=== PATIENT | male | born 1955 | race Caucasian/White ===

== ENCOUNTER → 2019-05-26 | Outpatient (CLI) | payer BC, MEDICARE ==
[2019-05-26 07:42] LABS: HGB 16.3 gm/dL (13.0-17.5); MCH 27.5 pg (25.0-35.0); MCV 85.8 fL (80.0-100.0); Mean Platelet Volume 7.1; Platelet Count 263 k/uL (150-450); RBC 5.94 m/uL (4.30-5.90); RDW 13.8 % (11.5-15.5); WBC 10.9 k/uL (3.8-10.6)
[2019-05-26 07:53] LABS: African American GFR (CKD) >90 (>60 ml/min/1.73 sqM); Anion Gap 10 mmol/L; Blood Urea Nitrogen 21 mg/dL (9-20); Carbon Dioxide 25 mmol/L (22-30); Chloride 103 mmol/L (98-107); Non-African American GFR(CKD) >90 (>60 ml/min/1.73 sqM); Potassium 4.6 mmol/L (3.5-5.1); Sodium 138 mmol/L (137-145)
== END ==
LOC: LABPAT 06:31
PROVIDERS: ATTEND Internal Medicine Interventional Cardiology
DX: Z01.812 Encounter for preprocedural laboratory examination (principal); I20.9 Angina pectoris, unspecified
CPT/HCPCS: 80051; 82565; 84520; 85027

== ENCOUNTER → 2019-06-07 | Day surgery (SDC) | payer MEDICARE, BC ==
[2019-06-02 13:18] VITALS: BMI 33.9
[~2019-06-07] MED LIST: ALPRAZolam 0.25 MG TAB PO PRN; ALPRAZolam 0.5 MG TAB PO PRN; ASPIRIN 325 MG TAB PO STA; ASPIRIN 81 MG PO SCH; ATORVASTATIN 10 MG TAB PO SCH; ATORVASTATIN 80 MG TAB PO STA; Ertugliflozin Pidolate [Steglatro] PO SCH; HEPARIN SODIUM 1,000 UN/ML (10ML VL) IV ONE; HYDROCHLOROTHIAZIDE 25 MG TAB PO SCH; IOPAMIDOL-300 50ML BTL INJ ONE; IOPAMIDOL-370 100ML BTL INJ ONE; LIDOCAINE 1% INJ 10MG/ML (20 ML MDV) ONE; LIDOCAINE 1% INJ 10MG/ML (20 ML MDV) SQ ONE; LOSARTAN 50 MG TAB PO SCH; METOPROLOL TARTRATE 25 MG TAB PO SCH; MIDAZOLAM 2 MG/2 ML VIAL IV ONE; NITROGLYCERIN SL TABS 0.4 MG TAB SUBLINGUAL PRN; NON FORMULARY DRUG (Omega-3 Fatty Acids/Fish Oil [Fish Oil 1,000 Mg Softgel] 1 CAP) PO SCH; PIOGLITAZONE 30 MG TAB PO SCH; SODIUM CHLORIDE 0.9% 1,000 ML IV SCH; SODIUM CHLORIDE 0.9% 1,000 ML in EMPTY BAG 1 BAG IV ONE; VERAPAMIL 2.5 MG/ML 2 ML AMP ONE; VERAPAMIL SYRINGE (5 MG/10 ML) INTRAARTER ONE; amLODIPine 10 MG TAB PO SCH
[2019-06-07 07:03] VITALS: RESP 18; TEMP 98.7
[2019-06-07 07:10] LABS: Glucose,Whole Blood 157 mg/dL (75-99)
--- NOTE | 2019-06-07 09:33 | CC ---
CARDIAC CATHETERIZATION REPORT DATE OF PROCEDURE: 06/07/2019. PROCEDURE: Left heart catheterization and coronary angiography and left ventriculography. PERFORMED BY: Dr. Parker Gaxiola. Moderate conscious sedation time was 64 minutes. Patient was administered Versed. His oxygen saturation, hemodynamics and EKG were monitored closely. CLINICAL INFORMATION: Mr. 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 PROCEDURE NOTE: Under local anesthesia and strict aseptic precautions, a 6-Beninese introducer was placed in the right radial artery. I advanced the right catheter up to the innominate artery, but I could not get into the ascending aorta. There was a bovine arch and the wire kept going towards the descending aorta. After some attempts, I took the wire out and started from the right femoral approach. I had great difficulty in getting axis mainly because there was a heavy chunk of calcium and each time I gained access and had a good blood return, I was unable to advance the guidewire because it kept pushing against the calcium within the vessel wall. This happened multiple times. There was a small hematoma. I therefore applied some manual pressure. I tried both micropuncture initially and normal regular needle subsequently. There was a small hematoma. Manual compression was applied. I then went over from the left groin and with a regular needle and a regular wire, I was able to gain access. A 6-Beninese introducer was placed. Standard Skinny catheters were used to perform coronary angiography and a pigtail catheter was used to perform an LV gram. The sheath was taken out and Angio- Seal device used to secure hemostasis at the end of the procedure. For the right groin, I applied a FemoStop. A TR band was applied to the right radial site and the TR band secured hemostasis very well and saturation was 95%. The patient tolerated the procedure well overall and it took considerably longer time. There was a small right groin hematoma and FemoStop was applied. CARDIAC CATHETERIZATION FINDINGS: Left ventricular end-diastolic pressure was about 14 to 15 mmHg without any gradient across aortic valve. CORONARY ANGIOGRAPHY FINDINGS: RIGHT CORONARY ARTERY: Technically this is a large dominant vessel which has mild calcification and distally it bifurcates into a large PDA and PLV, both of which supply a sizable amount of myocardium. There is no significant disease and there are only minor irregularities in the dominant RCA. Right coronary artery provides collaterals to the distal and mid LAD, by way of some collaterals that are are evident on RCA injection. LEFT MAIN CORONARY ARTERY: This is a long patent disease-free vessel that bifurcates into LAD and circumflex. LEFT ANTERIOR DESCENDING CORONARY ARTERY: This vessel is totally occluded in the midportion after septal and diagonal branch. This total occlusion seems to be very chronic. There is slow filling by ipsilateral collaterals noted and there are some bridging collaterals as well. LEFT POSTERIOR CIRCUMFLEX CORONARY ARTERY: Technically a nondominant vessel that is somewhat ectatic in the midportion gives off an obtuse marginal branch laterally and continuation of circumflex in the AV groove is a small branch. No significant disease in the nondominant circumflex that is somewhat ectatic in the midportion. LEFT VENTRICULOGRAM: This was performed in 30-degree JUAN projection, revealed a left ventricle which is of a normal size with good systolic function without wall motion abnormality. Ejection fraction is at least 55% without mitral regurgitation. FINAL IMPRESSION: This patient has slightly elevated filling pressures, no gradient across aortic valve and ejection fraction of 55% without wall motion abnormality and no mitral regurgitation. The patient has a total occlusion of the mid LAD with collaterals from the RCA. Nondominant circumflex, diagonal branch of LAD as well as the dominant RCA are free of significant disease. RECOMMENDATION: For now I am recommending that we will pursue medical therapy. Elective chronic total occlusion PCI of mid LAD will be performed. I discussed the findings in detail with the patient and family members, specifically his . I expect he will be discharged later on today if he is stable. We will see him in the office within the next one week. The findings on the cardiac cath and the general plan outlined in the details and difficulty with the right groin access was explained to the patient and . Postprocedure, patient is doing remarkably well without any symptoms. I expect he will be discharged at about 5 or 6 p.m. today. MMODL / IJN: [id number] /
[2019-06-07 17:08] VITALS: BP 133/76; PULSE 82
== END ==
LOC: CATHCVL 06:06
PROVIDERS: ATTEND Internal Medicine Interventional Cardiology
DX: I25.110 Atherosclerotic heart disease of native coronary artery with unstable angina pectoris (principal); I25.84 Coronary atherosclerosis due to calcified coronary lesion; I25.82 Chronic total occlusion of coronary artery; I10 Essential (primary) hypertension; Z87.891 Personal history of nicotine dependence; E78.5 Hyperlipidemia, unspecified; E78.00 Pure hypercholesterolemia, unspecified; E11.9 Type 2 diabetes mellitus without complications; E66.9 Obesity, unspecified; Z68.33 Body mass index [BMI] 33.0-33.9, adult; Z79.84 Long term (current) use of oral hypoglycemic drugs; Z79.82 Long term (current) use of aspirin; Z79.899 Other long term (current) drug therapy
CPT/HCPCS: 93458; C1769 ×5; C1760; C1894 ×2; J2250; J2001; J1644; Q9967 ×2

== ENCOUNTER → 2023-02-25 | Outpatient (CLI) | payer MEDICARE, BC ==
[2023-02-25 09:01] LABS: Partial Thromboplastin Time 24.5 sec (22.0-30.0); Prothrombin Time 10.9 sec (10.0-12.5)
[2023-02-25 11:06] LABS: HCT 54.8 % (39.6-50.0); HGB 17.9 d/dL (13.0-17.0); MCH 28.4 pg (27.0-32.0); MCHC 32.7 d/dL (32.0-37.0); MCV 86.8 FL (80.0-97.0); Mean Platelet Volume 9.3 FL (9.5-12.2); NRBC Per 100 WBC 0 X 10*3/uL (0.00-0.01); Platelet Count 208 X 10*3/uL (140-440); RBC 6.31 X 10*6/uL (4.40-5.60); RDW 13.5 % (11.5-14.5)
[2023-02-25 11:19] LABS: ALT 29 U/L (10-49); AST 23 U/L (14-35); Albumin 4.5 d/dL (3.8-4.9); Albumin/Globulin Ratio 1.88 Ratio (1.60-3.17); Alkaline Phosphatase 60 U/L (41-126); Blood Urea Nitrogen 20.7 mg/dL (9.0-27.0); Calcium 10.3 mg/dL (8.7-10.3); Carbon Dioxide 24.2 mmol/L (21.6-31.8); Chloride 100 mmol/L (96-109); Globulin 2.4 d/dL (1.6-3.3); Glucose 181 mg/dL (70-110); Potassium 4.9 mmol/L (3.5-5.5); Sodium 138 mmol/L (135-145); Total Bilirubin 0.5 mg/dL (0.3-1.2); Total Protein 6.9 d/dL (6.2-8.2)
[2023-02-25 12:29] LABS: Appearance,Urine Clear (Clear); Bilirubin,Urine Negative (Negative); Blood,Urine Negative (Negative); Color,Urine Yellow (Yellow); Ketones,Urine Trace (Negative); Nitrite,Urine Negative (Negative); Specific Gravity,Urine >1.035 (1.001-1.030); Urobilinogen,Urine 0.2
== END | disposition home or self-care (01) ==
LOC: LABPAT 07:40
PROVIDERS: ATTEND Orthopaedic Surgery
DX: Z01.818 Encounter for other preprocedural examination (principal); I49.1 Atrial premature depolarization; M16.11 Unilateral primary osteoarthritis, right hip; R94.31 Abnormal electrocardiogram [ECG] [EKG]
CPT/HCPCS: 36415; 80053; 81003; 83036; 85027; 85610; 85730; 86850; 86900; 86901; 87070; 93005

== ENCOUNTER → 2023-02-25 | Outpatient (CLI) | payer MEDICARE | END | disposition home or self-care (01) | LOC: LABWHC1 07:44 | PROVIDERS: ATTEND Family Medicine | DX: Z53.9 Procedure and treatment not carried out, unspecified reason (principal) ==

== ENCOUNTER 2023-03-09 09:08 | Day surgery (SDC) | payer BC, MEDICARE ==
[2023-03-02 14:48] VITALS: BMI 33.7
[~2023-03-09 09:08] MED LIST changes: +ACETAMINOPHEN TAB 500 MG TAB PO PRN; -ALPRAZolam 0.25 MG TAB PO PRN; -ALPRAZolam 0.5 MG TAB PO PRN; -ASPIRIN 325 MG TAB PO STA; -ASPIRIN 81 MG PO SCH; -ATORVASTATIN 10 MG TAB PO SCH; -ATORVASTATIN 80 MG TAB PO STA; +DEXAMETHASONE SOD PHOSPHATE 4 MG/ML 1 ML VIAL IV ONE; -Ertugliflozin Pidolate [Steglatro] PO SCH; +GABAPENTIN 300 MG CAP PO PRN; -HEPARIN SODIUM 1,000 UN/ML (10ML VL) IV ONE; -HYDROCHLOROTHIAZIDE 25 MG TAB PO SCH; +HYDROmorphone 0.5 MG/0.5 ML SYRINGE IVP PRN; -IOPAMIDOL-300 50ML BTL INJ ONE; -IOPAMIDOL-370 100ML BTL INJ ONE; +LIDOCAINE 1% (10MG/ML) FOR IV START INTRADERMA PRN; -LIDOCAINE 1% INJ 10MG/ML (20 ML MDV) ONE; -LIDOCAINE 1% INJ 10MG/ML (20 ML MDV) SQ ONE; -LOSARTAN 50 MG TAB PO SCH; +MELOXICAM 7.5 MG TAB PO PRN; -METOPROLOL TARTRATE 25 MG TAB PO SCH; -MIDAZOLAM 2 MG/2 ML VIAL IV ONE; +MIDAZOLAM 2 MG/2 ML VIAL IV PRN; -NITROGLYCERIN SL TABS 0.4 MG TAB SUBLINGUAL PRN; -NON FORMULARY DRUG (Omega-3 Fatty Acids/Fish Oil [Fish Oil 1,000 Mg Softgel] 1 CAP) PO SCH; +ONDANSETRON 4 MG/2 ML VIAL IVP ONE; -PIOGLITAZONE 30 MG TAB PO SCH; -SODIUM CHLORIDE 0.9% 1,000 ML IV SCH; -SODIUM CHLORIDE 0.9% 1,000 ML in EMPTY BAG 1 BAG IV ONE; +TRANEXAMIC 1,000 MG/100ML-NACL 1,000 MG in SALINE 1 100ML.BAG IVPB PRN; -VERAPAMIL 2.5 MG/ML 2 ML AMP ONE; -VERAPAMIL SYRINGE (5 MG/10 ML) INTRAARTER ONE; -amLODIPine 10 MG TAB PO SCH
[2023-03-09 10:37] LABS: Glucose,Whole Blood 150 mg/dL (70-110)
[2023-03-09] MEDS ORDERED: fentaNYL (PF) 50 MCG/ML 2 ML AMP IVP ONE (10:41)
[2023-03-09] MEDS: LACTATED RINGERS 1,000 ML IV SCH ×2 (10:57→14:24)
--- NOTE | 2023-03-09 11:10 | P.ANPRN ---
Procedure Note - Anesthesia - Nerve Block Performed Right Александр Single Time Out Performed: Yes Date of Procedure: 03/09/23 Procedure Start Time: 10:40 Procedure Stop Time: 10:48 Location of Patient: PreOp Indication: Acute Post-Operative Pain, Requested by Surgeon Sedation Type: Sedate with meaningful contact maintained Preparation: Sterile Prep Position: Supine Needle Types: Pajunk Needle Gauge: 21 Ultrasound used to visualize needle placement: Yes Ultrasound used to observe medication spread: Yes Injectate: 0.5% Ropivacaine (see comment for volume) (15 ml + 10 ml NS + 4 mg dexamethasone) Blood Aspirated: No Pain Paresthesia on Injection Noted: No Resistance on Injection: Normal Image Stored and Saved: Yes Events: Uneventful and Well Tolerated
[2023-03-09] MEDS ORDERED: ROPIVACAINE 5 MG/ML 30 ML VIAL ONE (11:25)
[2023-03-09] MEDS ORDERED: TRANEXAMIC 1,000 MG/100ML-NACL PREMIX BAG ONE (11:25)
[2023-03-09] MEDS ORDERED: SUCCINYLCHOLINE CHLORIDE 200 MG/10 ML VIAL IV ONE (11:25)
[2023-03-09] MEDS ORDERED: HYDROmorphone (PF) 1 MG/ML ONE (11:25)
[2023-03-09] MEDS ORDERED: fentaNYL (PF) 50 MCG/ML 2 ML AMP ONE (11:25)
[2023-03-09] MEDS ORDERED: PROPOFOL 10 MG/ML 20 ML VIAL IV ONE (11:25)
[2023-03-09] MEDS ORDERED: SODIUM CHLORIDE 0.9% (PF) 10 ML VIAL ONE (11:25)
[2023-03-09] MEDS ORDERED: DEXAMETHASONE SOD PHOSPHATE 4 MG/ML 1 ML VIAL ONE (11:25)
[2023-03-09] MEDS ORDERED: LIDOCAINE 1% INJ 10MG/ML (20 ML MDV) ONE (11:25)
[2023-03-09] MEDS ORDERED: ceFAZolin 1,000 MG in SODIUM CHLORIDE 0.9% 1,000 ML IRRIGATION ONE (11:30)
[2023-03-09] MEDS ORDERED: ROPIVACAINE 5 MG/ML 30 ML VIAL MISCELLANE ONE ×2 (11:57→12:39)
[2023-03-09] MEDS ORDERED: LACTATED RINGERS 1,000 ML IV ONE (12:39)
--- NOTE | 2023-03-09 12:46 | P.OP ---
Date of Procedure: 03/09/23 Preoperative Diagnosis: Severe osteoarthritis right hip Postoperative Diagnosis: Severe osteoarthritis right hip Procedure(s) Performed: Right total hip arthroplasty with a direct anterior approach Implants: [employer] Polarstem standard size 2 with a collar [employer] R3, 3 hole hemispherical acetabular shell, 52 mm [employer] Reflection 6.5 mm cancellus screw, 20 mm 2 [employer] R3, XLPE 20 acetabular liner [employer]hew Oxinium femoral head 36 m, +4 All components were press-fit. The articulation is Oxinium on polyethylene. Anesthesia: GETA Surgeon: Luis Enrique June Medicine Tech #1: Diya Gastelum Estimated Blood Loss (ml): 350 Pathology: none sent Condition: stable Disposition: PACU Indications for Procedure: After failure of conservative treatment we discussed the surgical and nonsurgi beba treatment options at length. Patient wishes to proceed with a total hip arthroplasty with a direct anterior approach. Complications specific to this procedure were discussed at length, including but not limited to infection, leg length discrepancy, dislocation, nerve injury, and fracture. Covid-19 was also discussed at length with the patient, and they are aware of the current policies and procedures. The patient was given the option of delaying surgery, but they elect to proceed knowing these risks. Patient is aware of all these complications and informed consent was obtained Operative Findings: The operative findings are consistent with severe osteoarthritis of the right hip Description of Procedure: The patient was seen and evaluated in the preoperative area and the consent was reviewed. The operative site was marked with a skin marker. The patient verified the procedure and operative site. A KAREN block was placed by anesthesia in the preoperative area. The patient was then brought to the operating room and given preoperative antibiotics intravenously. 1 g of Tranexamic acid was also given intravenously. A general anesthetic was administered by the anesthesia department. The patient was then placed on the [place] table with the bony prominences well-padded. The hip area was then prepped with a ChloraPrep solution and draped in the usual sterile fashion. A universal timeout was then performed, which confirmed the patient's name, surgical site, ALLERGIES, and procedure being performed on the consent. Next the incision site was located at 1 cm distal and 4 cm lateral to the anterior superior iliac spine. The skin and subcutaneous tissues were sharply incised. Incision was carefully dissected down to the fascia overlying the tensor fascia yanira muscle. This fascia was then incised in line with the muscle fibers. Care was taken to stay laterally in order to avoid injuring the lateral femoral cutaneous nerve. Next, using blunt finger dissection, the tensor fascia yanira muscle was dissected off its investing fascia. The muscle was then carefully retracted laterally with a cobra retractor over the lateral neck of the femur. Next, the circumflex vessels were identified and cauterized using the Aquamantis device. The anterior hip capsule was then exposed. The capsule was then opened and an inverted T fashion. The retractors were then placed intracapsularly. The retractors were maintained intracapsular throughout the procedure. The proximal femur was then visualized. Fluoroscopic x-rays were then taken in order to evaluate the preoperative leg lengths. A small amount of traction was placed on the leg. The femoral neck was then osteotomized at the appropriate level above the lesser trochanter. A small wedge of bone was then removed from the remaining femoral head. Next, using a corkscrew the femoral head was removed from the acetabulum. On gross visual inspection, the femoral head had complete loss of articular cartilage and multiple periarticular osteophytes. The femoral head was then measured. Attention was then turned to the acetabulum. The acetabulum was exposed and any remaining labrum was excised. Sequential reaming of the acetabulum was performed using fluoroscopic guidance until there was a good bed of bleeding cancellus bone. When the appropriate size was reached, a trial was then placed. The position and fit of the trial was checked with fluoroscopy. The trial was then removed. Then, using fluoroscopic guidance, the final implant was impacted at 20 of anteversion and 40 of abduction, and fully seated in the acetabulum. 2 screws were then placed in the acetabulum. Again fluoroscopy was used to check position of the screws. Next, the liner was then impacted, with a 20 elevated liner located in the anterior superior quadrant. Component locking was confirmed. Attention was then directed to the femur. With the aid of the [place] table, the femur was externally rotated to approximately 130, extended, and adducted under the opposite leg. A side hook was then placed under the proximal femur, and the side hook elevator was used to elevate the proximal femur while releasing the capsule. Retractors were then placed. A capsular release was performed, as well as a release of the conjoined tendon, which afforded excellent vis ualization of the proximal femur. Next, a box osteotome was used to lateralize the proximal femur. A stonecutter apprentice hand was then used to locate the femoral canal. Sequential broaching was then performed with appropriate size which afforded excellent fixation in the proximal femur. A trial was then placed with appropriate head and neck, and the hip was gently reduced with the aid of the [place] table. Fluoroscopy was then used to check position of the components, as well as to evaluate the leg lengths and offset. The leg lengths and offset were measured as closely as possible to ensure stability of the hip. The hip was then gently dislocated and the trials were then removed. Final implants were then impacted and the hip was again reduced. Final fluoroscopic x-rays confirmed that the components were in anatomic position. The leg lengths and offset were measured and were found to coincide with the trial measurements. The hip was also taken through range of motion, and found to be stable. The hip was then copiously irrigated with antibiotic solution with pulsatile lavage. The hip was then irrigated with Irrisept solution. The soft tissues were then injected with a ropivacaine solution. A second dose of 1 g of Tranexamic acid was also given intravenously. The fascia was then closed with 2-0 strata fix suture. The subcutaneous tissue was closed with 3-0 Vicryl. The subcuticular tissue was closed with 3-0 strata fix suture. The skin was then closed with Exofin skin glue. After the glue and dried, and Optifoam silver impregnated dressing was applied. The patient was then transferred to the recovery room in stable condition. The access services assistant KRISTIN Muro was required due to the complexity of surgery, and the need for skilled surgical garment assembler for positioning, draping, exposure, retraction, and closure of the wound.
[2023-03-09] MEDS ORDERED: ONDANSETRON 4 MG/2 ML VIAL IVP PRN (13:03)
[2023-03-09] MEDS ORDERED: NALOXONE 0.4 MG/ML 1 ML VIAL IV PRN (13:03)
[2023-03-09] MEDS ORDERED: MAGNESIUM HYDROXIDE 2,400 MG/30 ML CUP PO PRN (13:03)
[2023-03-09] MEDS ORDERED: HYDROmorphone 0.5 MG/0.5 ML SYRINGE IVP PRN ×3 (13:03)
[2023-03-09] MEDS ORDERED: HYDROcodone/APAP 7.5-325MG 1 EACH TAB PO PRN (13:06)
--- NOTE | 2023-03-09 13:35 | XR ---
EXAMINATION TYPE: XR Hip Limited RT DATE OF EXAM: 03/09/2023 CLINICAL HISTORY: Postoperative evaluation TECHNIQUE: Single portable view of the right hip was submitted. FINDINGS: Noted are changes of total hip arthroplasty with femoral and acetabular components appearin g well seated. Alignment is anatomic. Postsurgical soft tissue changes are evident. IMPRESSION: Satisfactory postoperative alignment
--- NOTE | 2023-03-09 13:46 | XR ---
EXAMINATION TYPE: XR Hip Limited RT DATE OF EXAM: 03/09/2023 COMPARISON: NONE HISTORY: Postop TECHNIQUE: 5 view submitted. FINDINGS: There is postsurgical change compatible hip replacement surgery. IMPRESSION: 1. Postoperative change.
--- NOTE | 2023-03-09 13:46 | FL ---
EXAMINATION TYPE: FL guidance operating room DATE OF EXAM: 03/09/2023 HISTORY: Fluoroscopy time Total dose area product (DAP) in uGy*m?, mGy*cm? (or similar): 5.3702 IMPRESSION: 1. Fluoroscopy time.
[2023-03-09] MEDS: SODIUM CHLORIDE 0.9% 1,000 ML IV SCH (15:16)
[2023-03-09] MEDS ORDERED: DEXTROSE 50% SYRINGE 50 ML IVP PRN ×2 (16:20)
[2023-03-09 16:41] LABS: Glucose,Whole Blood 164 mg/dL (70-110)
--- NOTE | 2023-03-09 16:44 | P.CONS ---
History of Present Illness - Reason for Consult Consult date: 03/09/23 - History of Present Illness 67 year old M with PMH of hypertension, CAD, A-Fib, DM and dyslipidemia presents to [facility] for elective surgery. She underwent right total hip arthroplasty with a direct anterior approach with Dr. June. [facility] has been consulted for medical management of this patient. Patient currently reports well controlled right hip pain. Has been able to urinate since surgery, no bowel movement, not passing gas. He has no other complaints. Pertinent positives and negatives as discussed in HPI, a complete review of systems was performed and all other systems are negative. General: non toxic, no distress, appears at stated age Derm: warm, dry Head: atraumatic, normocephalic, symmetric Eyes: EOMI, no lid lag, anicteric sclera Mouth: no lip lesion, mucus membranes moist Cardiovascular: Irregularly irregular, no murmur Lungs: CTA bilateral, no rhonchi, no rales , no accessory muscle use Abdominal: soft, nontender to palpation, no guarding, no appreciable org anomegaly, + BS, no strauss catheter Ext: no gross muscle atrophy, no edema, no contractures Neuro: no focal neuro deficits Psych: Alert, oriented, appropriate affect CAD A-Fib DM Hypertension Dyslipidemia Right total hip arthroplasty POD 0 Based on my assessment of this patient, this patient meets a moderate complexity level of care. Patient has a chronic diagnosis of hypertension, CAD, A-Fib, DM and dyslipidemia. CAD: ASA 81 mg PO QD. Metoprolol 50 mg PO QD. Lipitor 80 mg PO QD. A-Fib: Metoprolol as above. Xarelto ordered by Ortho starting tomorrow. DM: ISS. Accuchecks ACHS. Hypoglycemic precautions. Hypertension: Amlodipine 10 mg PO QD. Losartan 150 mg PO QD. Dyslipidemia: Lipitor as above. CODE STATUS: FULL CODE DVT Prophylaxis: Xarelto. Designated medical POA if patient is not able to make medical decisions for themselves: I have reviewed the following mental hygiene consultant notes: Surgical note. Anesthesia note. I have reviewed the results of the following tests: POC glucose. I have ordered the following tests: Agree with CBC. I have discussed the care of this patient with the following independent historian: I have independently interpreted the following test below: I have discussed the management of this patient with the following physician: Past Medical History Past Medical History: Atrial Fibrillation, Diabetes Mellitus, Hyperlipidemia, Hypertension, Osteoarthritis (OA) Additional Past Medical History / Comment(s): 11/06/14 Pt admitted to floor s/p total L knee arthroplasty. Other HX: NIDDM, History of Any Multi-Drug Resistant Organisms: None Reported Past Surgical History: Tonsillectomy Additional Past Surgical History / Comment(s): Total left knee arthroplasty, left knee lubricant injections, COLONOSCOPY, SINUS surgery, bilateral cataract surgery. Past Anesthesia/Blood Transfusion Reactions: No Reported Reaction Past Psychological History: No Psychological Hx Reported Additional Psychological History / Comment(s): Pt resides with his . He is independent. He currently uses no assistive devices. He drives a car. He has no home care agency use. Smoking Status: Former smoker Past Alcohol Use History: None Reported Additional Past Alcohol Use History / Comment(s): Started smoking in 1971 and quit in 1993. Past Drug Use History: None Reported - Past Family History Father Family Medical History: Cancer Medications and Allergies Home Medications Medication Instructions Recorded Confirmed Type Aspirin [Adult Low Dose Aspirin EC] 81 mg PO DAILY 06/02/19 03/09/23 History Acetaminophen [Tylenol] 325 - 650 mg PO Q4-6H PRN 03/02/23 03/09/23 History Empagliflozin [Jardiance] 25 mg PO DAILY 03/02/23 03/09/23 History Fish Oil/Dha/Epa [Fish Oil 1,200 1 each PO BID 03/02/23 03/09/23 History mg Fish Oil] Metoprolol Succinate (ER) [Toprol 50 mg PO QAM 03/02/23 03/09/23 History Xl] Olmesartan Medoxomil 40 mg PO QAM 03/02/23 03/09/23 History Rivaroxaban [Xarelto] 20 mg PO W/SUPPER 03/02/23 03/09/23 History Rosuvastatin Calcium 40 mg PO QAM 03/02/23 03/09/23 History Semaglutide [Ozempic] 2 mg SQ MAHONEY 03/02/23 03/09/23 History amLODIPine 10 mg PO QAM 03/02/23 03/09/23 History metFORMIN HCL 1,000 mg PO BID 03/02/23 03/09/23 History HYDROcodone/APAP 7.5-325MG [[place] 1 - 2 tab PO Q6H PRN #32 tab 03/09/23 Rx 7.5-325] Sennosides [Senokot] 2 tab PO DAILY PRN #60 tablet 03/09/23 Rx Allergies Allergy/AdvReac Type Severity Reaction Status Date / Time No Known Allergies Allergy Verified 03/09/23 09:50 Physical Exam Vitals: Vital Signs Temp Pulse Pulse Resp BP Pulse Ox 03/09/23 16:20 71 109/71 93 L 03/09/23 16:19 73 115/80 93 L 03/09/23 16:18 85 134/69 94 L 03/09/23 14:24 97.6 F 72 18 134/69 93 L 03/09/23 13:52 75 16 120/68 98 03/09/23 13:37 79 16 145/87 99 03/09/23 13:22 74 16 137/81 100 03/09/23 13:07 97 F L 83 16 136/84 99 03/09/23 11:05 85 131/78 97 03/09/23 10:00 97.2 F L 64 136/83 97 Intake and Output 03/09/23 03/09/23 03/09/23 06:59 14:59 22:59 Intake Total 1251 Output Total 350 Balance 901 Intake: IV 1251 Output: Estimated Blood Loss 350 Other: Weight 107 kg 107 kg Results Labs: Abnormal Lab Results - Last 24 Hours (Table) 03/09/23 03/09/23 Range/Units 10:16 16:40 POC Glucose (mg/dL) 150 H 164 H (70-110) mg/dL
[2023-03-09] MEDS: INSULIN ASPART (NovoLOG) 100 UNIT/ML VIAL SQ SCH ×2 (17:22→22:15)
[2023-03-09] MEDS ORDERED: SENNOSIDES-DOCUSATE SODIUM 1 EACH TAB PO SCH (21:00)
[2023-03-09 21:10] LABS: Glucose,Whole Blood 205 mg/dL (70-110)
[2023-03-09] MEDS: HYDROcodone/APAP 7.5-325MG 1 EACH TAB PO PRN (22:16)
[2023-03-10] MEDS: SODIUM CHLORIDE 0.9% 1,000 ML IV SCH (03:13)
[2023-03-10] MEDS: HYDROcodone/APAP 7.5-325MG 1 EACH TAB PO PRN (05:56)
[2023-03-10] MEDS: INSULIN ASPART (NovoLOG) 100 UNIT/ML VIAL SQ SCH (05:57)
[2023-03-10 05:58] LABS: Glucose,Whole Blood 129 mg/dL (70-110)
[2023-03-10 07:36] VITALS: BP 118/68; PULSE 81; RESP 17; TEMP 98.4
[2023-03-10 08:24] LABS: HCT 48.3 % (39.6-50.0); MCHC 33.1 g/dL (32.0-37.0); MCV 87.5 FL (80.0-97.0); Mean Platelet Volume 9.7 FL (9.5-12.2); NRBC Per 100 WBC 0 X 10*3/uL (0.00-0.01); Platelet Count 189 X 10*3/uL (140-440); RBC 5.52 X 10*6/uL (4.40-5.60); RDW 13.5 % (11.5-14.5); WBC 14.35 X 10*3/uL (4.50-10.00)
[2023-03-10] MEDS ORDERED: amLODIPine 10 MG TAB PO SCH (09:00)
[2023-03-10] MEDS ORDERED: ATORVASTATIN 80 MG TAB PO SCH (09:00)
[2023-03-10] MEDS ORDERED: METOPROLOL SUCCINATE (ER) 50 MG TAB.ER.24H PO SCH (09:00)
[2023-03-10] MEDS ORDERED: ASPIRIN 81 MG PO SCH (09:00)
[2023-03-10] MEDS ORDERED: LOSARTAN 50 MG TAB PO SCH (09:00)
[2023-03-10 09:47] LABS: Basophils # (A) 0.03 X 10*3/uL (0.00-0.10); Basophils % (A) 0.2 %; Eosinophils # (A) 0 X 10*3/uL (0.04-0.35); Eosinophils % (A) 0 %; Lymphocytes % (A) 14.6 %; Monocytes % (A) 11.1 %; Neutrophils # (A) 10.56 X 10*3/uL (1.80-7.70); Neutrophils % (A) 73.7 %; RBC Morphology Normal (Normal)
--- NOTE | 2023-03-10 10:07 | P.DS ---
Providers Expected date of discharge: 03/10/23 Attending physician: Luis Enrique June Consults: 03/09/23 13:03 Consult Physician Routine Consulting Provider: Jose Marin Consult Reason/Comments: medical management Do you want consulting provider notified?: Yes Primary care physician: Stated None - Discharge Diagnosis(es) (1) Osteoarthritis of right hip Current Visit: Yes Status: Acute (2) S/P total right hip arthroplasty Current Visit: Yes Status: Acute Hospital Course: This is a 67-year-old female with known history of degenerative arthritis of the right hip. The patient presented for evaluation as an outpatient. After discussion and consideration patient elects to proceed with total hip arthroplasty. The patient is seen preoperatively by Dr. June and medically cleared for surgery by their primary care physician. Patient is admitted to [facility] on 03/09/2023 for total hip arthroplasty. The procedure is performed without complication or sequelae. The patient is doing well postoperatively. Labs and vital signs are stable on day of discharge. On day of discharge patient's hip incision is healing well. There is minimal erythema. There is no drainage noted at this time. There is minimal soft tissue swelling to the hip and thigh. Patient has full foot and ankle motion without difficulty or pain. Calf is soft and nontender to palpation. Neurovascular status to the right lower extremity is intact. Patient is discharged home in good condition. Please see med rec for accurate list of home medications. Plan - Discharge Summary Discharge Rx Participant: Yes New Discharge Prescriptions: New HYDROcodone/APAP 7.5-325MG [[place] 7.5-325] 1 - 2 tab PO Q6H PRN #32 tab PRN Reason: Pain Sennosides [Senokot] 2 tab PO DAILY PRN #60 tablet PRN Reason: Constipation No Action Aspirin [Adult Low Dose Aspirin EC] 81 mg PO DAILY Metoprolol Succinate (ER) [Toprol Xl] 50 mg PO QAM Rosuvastatin Calcium 40 mg PO QAM Empagliflozin [Jardiance] 25 mg PO DAILY Acetaminophen [Tylenol] 325 - 650 mg PO Q4-6H PRN PRN Reason: Pain Rivaroxaban [Xarelto] 20 mg PO W/SUPPER amLODIPine 10 mg PO QAM metFORMIN HCL 1,000 mg PO BID Semaglutide [Ozempic] 2 mg SQ MAHONEY Olmesartan Medoxomil 40 mg PO QAM Fish Oil/Dha/Epa [Fish Oil 1,200 mg Fish Oil] 1 each PO BID Discharge Medication List Aspirin [Adult Low Dose Aspirin EC] 81 mg PO DAILY 06/02/19 [History] Acetaminophen [Tylenol] 325 - 650 mg PO Q4-6H PRN 03/02/23 [History] Empagliflozin [Jardiance] 25 mg PO DAILY 03/02/23 [History] Fish Oil/Dha/Epa [Fish Oil 1,200 mg Fish Oil] 1 each PO BID 03/02/23 [History] Metoprolol Succinate (ER) [Toprol Xl] 50 mg PO QAM 03/02/23 [History] Olmesartan Medoxomil 40 mg PO QAM 03/02/23 [History] Rivaroxaban [Xarelto] 20 mg PO W/SUPPER 03/02/23 [History] Rosuvastatin Calcium 40 mg PO QAM 03/02/23 [History] Semaglutide [Ozempic] 2 mg SQ MAHONEY 03/02/23 [History] amLODIPine 10 mg PO QAM 03/02/23 [History] metFORMIN HCL 1,000 mg PO BID 03/02/23 [History] HYDROcodone/APAP 7.5-325MG [[place] 7.5-325] 1 - 2 tab PO Q6H PRN #32 tab 03/09/23 [Rx] Sennosides [Senokot] 2 tab PO DAILY PRN #60 tablet 03/09/23 [Rx] Follow up Appointment(s)/Referral(s): Luis Enrique June DO [Doctor of Osteopathic Medicine] - 2 Weeks Activity/Diet/Wound Care/Special Instructions: Weightbearing as tolerated with walker. Leave dressing intact. Dressing may be removed by home care nurse or by patient in 7 days. Then change dressing twice daily until follow up. May shower with initial dressing intact and after removal. If dressing become saturated, please remove. Please resume Xarelto postoperatively. Recommend use of compression stockings daily until follow up to help prevent swelling and blood clots. May remove at night before sleeping. Please follow-up with [facility] in 2 weeks and call with any questions or concerns, . Discharge Disposition: HOME WITH HOME HEALTH SERVICES
--- NOTE | 2023-03-10 12:09 | P.PN ---
Subjective Progress Note Date: 03/10/23 67 year old M with PMH of hypertension, CAD, A-Fib, DM and dyslipidemia presents to [facility] for elective surgery. She underwent right total hip arthroplasty with a direct anterior approach with Dr. June. Patient was seen today. He is denying any acute complaints. He is looking forward to going home. 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 Metoprolol 50 mg PO QD. Lipitor 80 mg PO QD. A-Fib: Metoprolol as above. Xarelto ordered by Ortho starting tomorrow. DM: ISS. Accuchecks ACHS. Hypoglycemic precautions. Hypertension: Amlodipine 10 mg PO QD. Losartan 150 mg PO QD. Dyslipidemia: Lipitor as above. CODE STATUS: FULL CODE DVT Prophylaxis: Xarelto. Patient stable for discharge home for a medical standpoint Objective - Vital Signs Vital signs: Vital Signs Temp 98.4 F 03/10/23 07:09 Pulse 81 03/10/23 07:09 Resp 17 03/10/23 07:09 BP 118/68 03/10/23 07:09 Pulse Ox 97 03/10/23 07:09 FiO2 Intake & Output 03/09/23 03/10/23 03/10/23 18:59 06:59 18:59 Intake Total 1251 870 Output Total 350 950 Balance 901 -80 Weight 107 kg Intake: IV 1251 Intake, IV Titration 870 Amount Sodium Chloride 0.9% 1, 770 000 ml @ 70 mls/hr IV . [id number] GAUTAM Rx#:[id number] ceFAZolin 2 gm In Sodium 100 Chloride 0.9% 50 ml @ 100 mls/hr IVPB Q8H GAUTAM Rx#: [id number] Output: Urine 950 Estimated Blood Loss 350 Other: # Voids 2 4 - Labs CBC & Chem 7: 03/10/23 05:49 Labs: Abnormal Lab Results - Last 24 Hours (Table) 03/09/23 03/09/23 03/10/23 Range/Units 16:40 21:09 05:49 WBC 14.35 H (4.50-10.00) X 10*3/uL Neutrophils # 10.56 H (1.80-7.70) X 10*3/uL Monocytes # 1.60 H (0.20-1.00) X 10*3/uL Eosinophils # 0 L (0.04-0.35) X 10*3/uL POC Glucose (mg/dL) 164 H 205 H (70-110) mg/dL 03/10/23 Range/Units 05:57 WBC (4.50-10.00) X 10*3/uL Neutrophils # (1.80-7.70) X 10*3/uL Monocytes # (0.20-1.00) X 10*3/uL Eosinophils # (0.04-0.35) X 10*3/uL POC Glucose (mg/dL) 129 H (70-110) mg/dL
[2023-03-10] MEDS ORDERED: RIVAROXABAN 20 MG TAB PO SCH (17:30)
== END 2023-03-10 11:55 | disposition home health service (06) ==
LOC: OR 09:08 → 4SSUR 12:58 → OR 03-10 11:55
PROVIDERS: ATTEND Orthopaedic Surgery
DX: M16.11 Unilateral primary osteoarthritis, right hip (principal); E11.9 Type 2 diabetes mellitus without complications; I48.91 Unspecified atrial fibrillation; E78.5 Hyperlipidemia, unspecified; I10 Essential (primary) hypertension; I25.10 Atherosclerotic heart disease of native coronary artery without angina pectoris; Z79.01 Long term (current) use of anticoagulants; Z79.82 Long term (current) use of aspirin; Z79.84 Long term (current) use of oral hypoglycemic drugs; Z87.891 Personal history of nicotine dependence; Z96.641 Presence of right artificial hip joint; Z79.899 Other long term (current) drug therapy
CPT/HCPCS: 97161; 97166; 64447; 85025; 73501; 27130; C1776; J2250; J1100; J0690 ×3; J2405; J3010; J2795